=== PATIENT | female | born 1970 | race Caucasian/White ===

== ENCOUNTER 2016-12-04 09:00 | Emergency (ER) | payer BC ==
[2016-12-04 09:19] VITALS: BP 136/91
--- NOTE | 2016-12-04 10:07 | RAD ---
INDICATION: Foot injury COMPARISON: None TECHNIQUE: AP, lateral, and oblique views were obtained. FINDINGS: The bony structures, joint spaces, and soft tissues are normal for age. IMPRESSION: NO ACUTE FRACTURE.
--- NOTE | 2016-12-04 10:08 | RAD ---
INDICATION: Left great toe injury COMPARISON: None TECHNIQUE: AP, lateral, and oblique views were obtained. FINDINGS: There is no acute fracture. There is minor first MTP joint space narrowing. The soft tissues are normal. IMPRESSION: NO ACUTE BONY FINDINGS.
[2016-12-04] MEDS ORDERED: Tetan/Diph/Pertus SYR(Tdap)* 0.5 ML SYR(BOOSTRIX) use SYR IM ONE (10:24)
[2016-12-04] MEDS ORDERED: Ibuprofen TAB* 200 MG PO ONE (10:30)
--- NOTE | 2016-12-04 10:30 | UC ---
Lyndsay Du Alok, scribed for Lauren Zhao MD on 12/04/16 at 1018 . Lower Extremity/Ankle HPI - HPI Summary HPI Summary: 46 y/o female presents to the accompanied by her for left foot pain after being stepped on by a horse yesterday at 1500. Pt states she was wearing light sneakers and socks during injury and pulled her foot out from under the horse. 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 Pt states her pain which began as a throbbing has turned into a numbness with slight edema. Pt has also developed ecchymosis. Pt with small wound - cleaned with water only. Pt has been taking ibuprofen to manage pain. She is unsure of her last tetanus shot and is not immunocompromised. No analgesia taken today. PSHx includes 2 caesarean sections. Pt drinks ETOH occasionally and denies tobacco use. Patient medication reviewed at visit. - History of Current Complaint Chief Complaint: UCLowerExtremity Stated Complaint: FOOT COMPLAINT Time Seen by Provider: 12/04/16 09:38 Hx Obtained From: Patient, Family/Middleware Administrator Hx Last Menstrual Period: 11/24/16 ?: No Onset/Duration: Sudden Onset, Lasting Days, Still Present Severity Initially: Moderate Severity Currently: Moderate Pain Intensity: 10 Pain Scale Used: 0-10 Numeric Aggravating Factor(s): Standing, Ambulation Alleviating Factor(s): OTC Meds - Tylenol Able to Bear Weight: Yes - Allergies/Home Medications Allergies/Adverse Reactions: Allergies Allergy/AdvReac Type Severity Reaction Status Date / Time No Known Allergies Allergy Verified 12/04/16 09:20 Home Medications: Home Medications Hydrocodone/APAP 5/300 (NF) [Vicodin 5 MG/300 MG(NF)] 12/04/16 [History Confirmed 12/04/16] PMH/Surg Hx/FS Hx/Imm Hx Previously Healthy: Yes Cancer History Of: Denies: Breast Cancer - Surgical History Surgical History: None - Family History Known Family History: Negative: Cardiac Disease, Hypertension, Diabetes - Social History Occupation: Employed Full-time - [employer] Alcohol Use: Occasionally Substance Use Type: None Smoking Status (MU): Never Smoked Tobacco Review of Systems Constitutional: Negative Skin: Bruising, Other - wound Eyes: Negative ENT: Negative Respiratory: Negative Cardiovascular: Negative Gastrointestinal: Negative Genitourinary: Negative Motor: Other - Left foot pain Neurovascular: Negative Musculoskeletal: Other: - Left foot pain Neurological: Negative Psychological: Negative All Other Systems Reviewed And Are Negative: Yes Physical Exam Triage Information Reviewed: Yes Appearance: Well-Appearing, No Pain Distress, Well-Nourished Vital Signs: Initial Vital Signs Pulse 69 12/04/16 09:16 Resp 18 12/04/16 09:16 BP 136/91 12/04/16 09:16 Pulse Ox 97 12/04/16 09:16 Vital Signs Reviewed: Yes Eye Exam: Normal ENT Exam: Normal ENT: Positive: Hearing grossly normal Neck exam: Normal Neck: Positive: Supple, Nontender Respiratory Exam: Normal Respiratory: Positive: No respiratory distress, No accessory muscle use Cardiovascular: Positive: Other: - 2+ DP, PT CBT < 2 sec all digits left foot Abdominal Exam: Normal Abdomen Description: Positive: Nontender, No Organomegaly, Soft Musculoskeletal: Positive: Other: - + TTP along distal 4 and 5th MT and left great toe No crepitus + SLE + flex/ext knee, ankle Neurological: Positive: Other: - + gross sensation throughout foot Psychological Exam: Normal Skin: Positive: Other - + ecchymosis left foot from distal 4 and 5th MT to left great toe 1cm abraison base left great toe - no active bleeding Diagnostics - Radiology Foot XRAY Xray Interpretation: Positive (See Comments) - IMPRESSION: NO ACUTE FRACTURE Radiology Interpretation Completed By: Radiologist Toe XRAY Xray Interpretation: Positive (See Comments) - IMPRESSION NO ACUTE MATHIEU FINDINGS Radiology Interpretation Completed By: Radiologist Lower Extremity Course/Dx - Course Course Of Treatment: Pt with injury to left foot yesterday after stepped on by horse. Pt with pain with walking - throbbing and tingling. PT with small non- suturable abrasion. imaging. splint if + fx. walking shoe. cructhes. analgesia. elevate. wound care. tdap. pcp f/u. pt requesting limitation note for work - not a no work note - Differential Dx/Diagnosis Provider Diagnoses: foot contusion. abrasion Discharge - Discharge Plan Condition: Stable Disposition: HOME Prescriptions: HYDROcodone/ACETAMIN 5-325 MG* [[place] 5-325 TAB*] 1 - 2 tab PO Q6H PRN #10 tab MDD 8 PRN Reason: Pain Patient Education Materials: Foot Contusion (ED), Abrasion (ED) Forms: *Work Release Referrals: Ginette Bourgeois NP [Primary Care Provider] - Additional Instructions: - Okay to alternate ibuprofen (advil, motrin) and tylenol product (Tylenol or [place]) every 3 hours for pain. Take with food. Do NOT Take for more than 4-[address], operate machinery or drink alcohol while taking [place] - WEar walking shoe for comfort - Soak foot in warm soapy water 2 times a day for 20 minutes at a time - elevate the foot - this will help with swelling and pain - use crutches until you can walk normally without a limp - your tetanus was updated today - call your doctor or return with questions or concerns The documentation as recorded by the Lyndsay rojas Alok accurately reflects the service I personally performed and the decisions made by me, Lauren Zhao MD.
== END 2016-12-04 10:54 | disposition home or self-care (01) ==
LOC: UCEAST 09:00
DX: S90.32XA Contusion of left foot, initial encounter (principal); S90.812A Abrasion, left foot, initial encounter; W55.19XA Other contact with horse, initial encounter
CPT/HCPCS: 90471; 90715; 99213; A9270-GY; G0463

== ENCOUNTER 2019-09-05 11:37 | Day surgery (SDC) | payer OTHER ==
[~2019-09-05 11:37] MED LIST: Buffered Lidocaine 1% SYRIN* 1 ML/SYRINGE INTRADERM ONE; Dexamethasone IV* 4 MG/ML 1 ML (4 MG) IV SLOW PU ONE; Famotidine IV* 10 MG/ML 2 ML (20 mg) IV ONE; Lactated Ringers 1000 ML Bag* 1,000 ML IV SCH
[2019-09-05] MEDS ORDERED: Buffered Lidocaine 1% SYRIN* 1 ML/SYRINGE INTRADERM ONE (12:15)
[2019-09-05] MEDS ORDERED: Dexamethasone IV* 4 MG/ML 1 ML (4 MG) ONE (12:15)
[2019-09-05] MEDS ORDERED: Famotidine IV* 10 MG/ML 2 ML (20 mg) ONE (12:16)
[2019-09-05] MEDS ORDERED: Midazolam* 1 MG/ML 5 ML VIAL (5 MG) ONE (13:28)
[2019-09-05] MEDS ORDERED: fentaNYL* 50 MCG/ML 5 ML VIAL (250 MCG VIAL) ONE (13:28)
[2019-09-05] MEDS ORDERED: Ketorolac INJ* 30 MG/ML 1 ML VIAL ONE (13:29)
[2019-09-05] MEDS ORDERED: Lidocaine 2% PF * 5 ML VIAL ONE (13:29)
[2019-09-05] MEDS ORDERED: Propofol* 10 MG/ML 20 ML BTL ONE (13:29)
[2019-09-05] MEDS ORDERED: Ondansetron INJ* 2 MG/ML VIAL ONE (13:29)
[2019-09-05] MEDS ORDERED: Ondansetron INJ* 2 MG/ML VIAL IV PRN (14:15)
[2019-09-05] MEDS ORDERED: DiMENhydriNATE IV* 50 MG/ML VIAL IV PUSH PRN (14:15)
[2019-09-05] MEDS ORDERED: oxyCODONE/Acetamin 5/325 MG* TAB PO PRN (14:15)
[2019-09-05] MEDS ORDERED: Naloxone* 0.4 MG/ML 1 ML VIAL IV PRN (14:15)
[2019-09-05] MEDS ORDERED: fentaNYL* 50 MCG/ML 2 ML VIAL (100 MCG VIAL) ONE ×2 (15:07→15:22)
[2019-09-05] MEDS: fentaNYL* 50 MCG/ML 2 ML VIAL (100 MCG VIAL) IV PRN ×3 (15:08→15:23)
[2019-09-05 16:36] VITALS: BP 135/77
--- NOTE | 2019-09-06 01:30 | OP ---
CC: [facility] OPERATIVE REPORT: DATE OF OPERATION: 09/05/19 DATE OF : 66 SURGEON: Frida Casas MD ANESTHESIOLOGIST: Dr. Smith. ANESTHESIA: General endotracheal anesthesia. PRE-OP DIAGNOSES: Heavy menstrual bleeding, stenotic cervix. POST-OP DIAGNOSES: Heavy menstrual bleeding, stenotic cervix. OPERATIVE PROCEDURE: Dilation, hysteroscopy. ESTIMATED BLOOD LOSS: Minimal. Less than 20 cc. FINDINGS: Midline cervix. Stenotic internal os. Unable to dilate the cervix with the Hegar dilators. Using the smallest 3 scope, I was able to visualize the inside of the cervix but unable to pass through the internal os. There appeared to be a false passage going anteriorly that was blind ending. When I was able to visualize the path of the internal os, I was unable to get the size 3 scope through that passage. Therefore, the surgery was stopped. COMPLICATIONS: None. COUNTS: Sponge count correct x2. CONDITION: The patient tolerated the procedure well and was brought to the recovery room awake and in stable condition. DESCRIPTION OF PROCEDURE: The patient was brought to the operating room when general anesthesia was found to be adequate. The patient was prepped and draped in the usual sterile fashion in the dorsal lithotomy position. A time- out was performed. Exam under anesthesia was performed. The long-weighted speculum was placed in the vagina. The anterior lip of the cervix was grasped with a single- tooth tenaculum. Attempts were made to dilate the cervix using the small dilators. There was no difficulty with the external os; however, no dilator could pass through the internal os. We switched to the smallest hysteroscope available, size 3 and we were able to visualize the inside of the cervix. There appeared to be a false passage going anteriorly that was just blind ending. I was not able to pass the 3 scopt through the passage that appeared to be the true os.hat appeared to be the true cervical os. Therefore, I was not able to do a curettage or a NovaSure ablation. I attempted to pass a pipelle to get a specimen and I could not pass the pipelle through the internal os. [id number]/[facility] #: [id number] [facility]
== END 2019-09-05 16:45 | disposition home or self-care (01) ==
LOC: OR 11:37
PROVIDERS: ATTEND Obstetrics & Gynecology
DX: N92.0 Excessive and frequent menstruation with regular cycle (principal); N88.2 Stricture and stenosis of cervix uteri; D50.9 Iron deficiency anemia, unspecified; E66.9 Obesity, unspecified
CPT/HCPCS: 81025; J1100; J1885; J2250; J2405; J2704; J3010